=== PATIENT | male | born 1975 | race Caucasian/White ===

== ENCOUNTER → 2024-11-19 | Day surgery (SDC) | payer BC ==
[~2024-11-19] MED LIST: ACETAMINOPHEN 1000 MG/100 ML 100 ML IV ONE; DEXAMETHASONE SOD PHOS INJ 4 MG/ML SDV ONE; FENTANYL CITRATE/PF 100MCG/2 ML INJ ONE; FLONASE ALLERG9.9 ML INH; HYDROCODONE/APAP 7.5MG-325MG 1 EA TAB ONE; LIDOCAINE HCL 2% LOCAL INJ 5 ML SDV VIAL INJ ONE; MAGNESIUM100 MG; MEPERIDINE HCL INJ 25 MG/ML VIAL ONE; MULTI-VITAMIN1 EACH PO; ONDANSETRON HCL INJ 2MG/ML 2ML 2 MG/ML VIAL ONE; PROPOFOL IV EMULSION 10 MG/ML 20 ML VIAL ONE; SEVOFLURANE INHAL SOLN 250 ML PEN BTL ONE
[2024-11-19] MEDS: CEFAZOLIN SODIUM 2 GM ONE (06:10)
[2024-11-19] MEDS: LACTATED RINGER'S 1,000 ML ONE (06:11)
[2024-11-19 06:27] LABS: BASOPHILS % 0.9 % (0.0-1.0); EOSINOPHILS % 2.3 % (0.0-6.0); LYMPHOCYTES % 31.7 % (18.0-39.1); MONOCYTES % 8.8 % (4.4-11.3); NEUTROPHILS % 56.1 % (38.7-80.0); RED CELL DISTRIBUTION WIDTH 13.0 % (11.7-14.4)
[2024-11-19 06:50] LABS: EST GLOMERULAR FILTRATION RATE 99.0 ML/MIN (>=60)
[2024-11-19 08:56] VITALS: TEMP 98.3
[2024-11-19] MEDS: MEPERIDINE HCL INJ 25 MG/ML VIAL IV ONE ×2 (09:23→09:28)
[2024-11-19] MEDS: HYDROCODONE/APAP 7.5MG-325MG 1 EA TAB PO ONE (09:45)
[2024-11-19 10:25] VITALS: BP 135/96; PULSE 68; RESP 18; O2SAT 99
== END | disposition home or self-care (01) ==
LOC: OR 05:31
PROVIDERS: ATTEND Podiatrist Foot Surgery
DX: M20.12 Hallux valgus (acquired), left foot (principal); G47.33 Obstructive sleep apnea (adult) (pediatric); E66.9 Obesity, unspecified; Z01.810 Encounter for preprocedural cardiovascular examination
CPT/HCPCS: 28296; 36415; 80048; 85025; 93005; C1713 ×2; J0131; J1100; J2003; J2175; J2405; J2704; J3010; J7121; 76000